=== PATIENT | female | born 1980 | race Caucasian/White ===

== ENCOUNTER 2021-06-08 07:06 | Emergency (ER) | payer BC, SELFPAY ==
[2021-06-08 07:08] VITALS: BP 130/76; PULSE 66; RESP 14; TEMP 36.2; O2SAT 98; BMI 24.5
--- NOTE | 2021-06-08 07:41 | EDS_ITS ---
HPI History of Present Illness Chief Complaint: Rash Informant: patient Onset/Context/Timing Onset: Days (2) Context: Gradual Onset Timing: Continuous Quality: Hives Location: Abdomen, chest, upper back, right hand Worsened by: Nothing Relieved by: Benadryl Narrative Narrative: Patient presents with rash that began 2 days ago. Patient states that came on gradually. Patient states that today she noted some swelling of the tip of her tongue and scratchiness to her throat. Patient states she took 2 [id number] Benadryl tablets approximately 2 hours before she came to the emergency department. Patient states it feels somewhat better. Patient states she was recently started on Bactrim 4 days ago for urinary tract infection. Patient also states she was started on Synthroid 2 days ago for hypothyroidism. Patient states that she still has some urinary urgency and frequency. Patient denies any dysuria. Patient states she has been given a prescription for prednisone but did not take this because she has a history of bipolar disorder and is concerned over possible manic episode due to the prednisone. [facility] Medical History Anxiety Bipolar disorder Depression GERD (gastroesophageal reflux disease) High cholesterol Hypothyroidism Irregular heart beat OCD (obsessive compulsive disorder) Home Medications citalopram [Celexa] 20 mg PO DAILY 06/08/21 [History Last Taken Unknown] lamotrigine 200 mg PO DAILY 06/08/21 [History Last Taken Unknown] levonorgestrel [Mirena] 20 mcg INTRAUTERINE DAILY 06/08/21 [History Last Taken Unknown] levothyroxine [Synthroid] 25 mcg PO DAILY 06/08/21 [History Last Taken Unknown] lithium carbonate 600 mg PO DAILY 06/08/21 [History Last Taken Unknown] lorazepam [Ativan] 0.5 - 1 mg PO DAILY PRN 06/08/21 [History Last Taken Unknown] lurasidone [Latuda] 20 mg PO DAILY 06/08/21 [History Last Taken Unknown] metformin 500 mg PO DAILY 06/08/21 [History Last Taken Unknown] nitrofurantoin monohyd/m-cryst 100 mg PO Q12 #14 capsule 06/08/21 [Rx Last Taken Unknown] spironolactone 50 mg PO DAILY 06/08/21 [History Last Taken Unknown] Allergy/AdvReac Type Severity Reaction Status Date / Time Penicillins Allergy Hives Verified 06/08/21 07:11 escitalopram [From Lexapro] AdvReac Other Verified 06/08/21 07:17 Social History Smoking Status: Never smoker ROS ROS ED Constitutional Constitutional ED: Denies chills or fever(s) Eyes Eyes: Denies blurry vision or change in vision ENT ENT ED: Reports sore throat; Denies rhinorrhea Cardiovascular Cardiovascular: Denies chest pain or palpitations Respiratory/Chest Respiratory/Chest: Denies cough or dyspnea Gastrointestinal Gastrointestinal: Denies nausea or vomiting Genitourinary Genitourinary ED: Reports urinary frequency; Denies dysuria or hematuria Musculoskeletal Musculoskeletal: Denies back pain or neck pain Integumentary Reports rash; Denies abscess Neurologic Neurologic: Denies headache(s) or weakness Allergic/Immunologic Allergic/Immunologic ED: Reports tongue swelling and urticaria EXAM Physical Exam Const Vital Signs: 06/08/21 07:08 Temperature 97.1 F L Temperature Source Temporal Pulse Rate 66 Respiratory Rate 14 Blood Pressure 130/76 H Blood Pressure Mean 94 Pulse Ox 98 Oxygen Delivery Method Room Air Positive well nourished and well developed General Appearance ED: well developed HEENT Reports moist mucous membranes HEENT Narrative: Oropharynx is clear. Airway is patent. There is no edema noted of the oropharynx. There is some questionable edema of the tip of the tongue. Neck supple and no JVD Resp normal respiratory effort and clear to auscultation bilaterally Cardio regular rate, regular rhythm and no murmurs GI normal to inspection, nondistended, normoactive bowel sounds and non-tender Palpation: soft Extremity normal to inspection General Extremety ED: Negative for edema or tenderness General Extremity: Negative for edema Neuro oriented x3, CN's II-XII intact bilaterally and no sensory deficits noted Sensorium / Orientation: alert Motor Exam: strength 5/5 throughout Psych mental status grossly normal Skin Skin Narrative: There is a patchy urticarial rash noted over the abdomen, upper chest, upper back, and over the dorsal aspect of the right hand. There are no vesicles or pustules noted. There are no petechia noted. There is no discharge or drainage. MDM MDM MDM Narrative Medical decision making narrative: Urinalysis was obtained. There is leukocyte esterase of 500 with 25-50 white blood cells and 1+ bacteria. Urine culture was ordered. Patient is feeling better on reevaluation. Patient was instructed to continue taking Benadryl as needed for any itching or hives. Patient was also instructed that she could take Zyrtec, Claritin, or Isabel instead of Benadryl. Patient was given a dose of Macrobid here. Patient is given a prescription for Macrobid. Patient was instructed to follow-up with her primary care physician in 5 to 7 days. Patient understood and was agreeable with the plan. All questions were answered. Lab Data Labs: Laboratory Results - last 24 hr 06/08/21 08:08 Urine Color Yellow Urine Clarity Sl. Cloudy Urine pH 7.0 Ur Specific [place] 1.005 Urine Protein Negative Urine Glucose (UA) Normal Urine Ketones Negative Urine Occult Blood 50 H Urine Nitrite Negative Urine Bilirubin Negative Urine Urobilinogen Normal Ur Leukocyte Esterase 500 H Urine RBC 0-5 SEEN Urine WBC 25-50 SEEN Ur Squamous Epith Cells 0-5 SEEN Urine Bacteria 1+ Urine Mucus 0 SEEN Discharge Plan Triage Chief Complaint: Rash ED Provider: Vaughn Mora Dx/Rx/DC Orders Clinical Impression: Urticaria, Urinary tract infection Instructions: ED Hives (Adult), ED CYSTITIS Female Adult Prescriptions: New nitrofurantoin monohyd/m-cryst [nitrofurantoin monohyd/m-cryst] 100 MG capsule 100 mg PO Q12 Qty: 14 RF: 0 No Action metformin 500 mg Tablet 500 mg PO DAILY RF: 0 Mirena 20 mcg/24 hours (7 yrs) 52 mg Intrauterine Device 20 mcg INTRAUTERINE DAILY RF: 0 lamotrigine 200 mg Tablet 200 mg PO DAILY RF: 0 levothyroxine [Synthroid] 25 mcg Tablet 25 mcg PO DAILY RF: 0 citalopram [Celexa] 20 mg Tablet 20 mg PO DAILY RF: 0 lithium carbonate 600 mg Capsule 600 mg PO DAILY RF: 0 lorazepam [Ativan] 1 mg Tablet 0.5 - 1 mg PO DAILY PRN (Reason: Anxiety) RF: 0 spironolactone 50 mg Tablet 50 mg PO DAILY RF: 0 Latuda 20 mg Tablet 20 mg PO DAILY RF: 0 Primary Care Provider: Mari Salvador Referrals: Mari Salvador MD [Primary Care Provider] - 5-7 Days Disposition Disposition: Home, Self Care
[2021-06-08 08:18] LABS: Mucous, Urine 0 SEEN /hpf (<or=2+)
[2021-06-08 08:26] LABS: Color, Urine Yellow (Yellow); Glucose, Dipstick Normal (Normal); Ketone-Dipstick Negative (Negative); Leukocyte Esterase-Dipstick 500 /ul (Negative); Nitrite-Dipstick Negative (Negative); Occult Blood-Urine 50 /ul (Negative); Protein-Dipstick Negative (Negative); Specific Gravity, Urine 1.005 (1.002-1.030); Urine Bilirubin Dipstick Negative (Negative); Urine Clarity Sl. Cloudy (Clear); Urine Urobilinogen Normal (Normal)
[2021-06-08 08:33] LABS: Bacteria 1+ /hpf (None Seen); Red Blood Cells-Urine 0-5 SEEN /hpf (0-5); Squamous Epithelial Cells - UA 0-5 SEEN /hpf (5-10); White Blood Cells 25-50 SEEN /hpf (0-5)
[2021-06-08] MEDS: Nitrofurantoin Macrocrystals 100 MG Capsule PO (09:17)
== END 2021-06-08 09:18 | disposition home or self-care (01) ==
PROVIDERS: Emergency Provider Emergency Medicine; PCP Internal Medicine; Visit Provider Emergency Medicine
DX: L50.9 Urticaria, unspecified (principal); F31.9 Bipolar disorder, unspecified; N39.0 Urinary tract infection, site not specified; E03.9 Hypothyroidism, unspecified; E78.00 Pure hypercholesterolemia, unspecified; K21.9 Gastro-esophageal reflux disease without esophagitis; F42.9 Obsessive-compulsive disorder, unspecified; F41.9 Anxiety disorder, unspecified; Z79.84 Long term (current) use of oral hypoglycemic drugs; Z79.890 Hormone replacement therapy; Z79.899 Other long term (current) drug therapy
CPT/HCPCS: 81001; 99283

== ENCOUNTER → 2022-05-20 | Outpatient (CLI) | payer BC, SELFPAY | END | disposition home or self-care (01) | PROVIDERS: PCP Internal Medicine; Visit Provider Nurse Practitioner | DX: R06.83 Snoring (principal); R06.81 Apnea, not elsewhere classified; G47.10 Hypersomnia, unspecified | CPT/HCPCS: 95810 ==

== ENCOUNTER 2023-01-20 14:36 | Outpatient (RCR) | payer BC, SELFPAY | END 2023-01-20 19:00 | disposition home or self-care (01) | LOC: PT 14:36 | PROVIDERS: PCP Internal Medicine | DX: Z00.00 Encounter for general adult medical examination without abnormal findings (principal) ==

== ENCOUNTER 2023-04-06 14:57 | Emergency (ER) | payer BC, SELFPAY ==
[2023-04-06 14:58] VITALS: BP 112/71; PULSE 73; RESP 18; TEMP 35.7; O2SAT 98; BMI 24.7
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
--- NOTE | 2023-04-06 15:48 | ED.RN ---
RN AT THE BEDSIDE TO HAVE PATIENT CHANGE INTO A GOWN FOR IM INJECTIONS. PT STATES SHE DOESN'T WANT TO GET THE MEDICATIONS UNTIL SHE TALKS TO HER NEUROLOGIST. PT IS ACTIVELY TRYING TO GET IN TOUCH WITH NEUROLOGIST.
[2023-04-06] MEDS: Rabies Immune Globulin/PF 300 UNIT/ML, 5 ML VIAL 1220 UNIT IM (16:22)
[2023-04-06] MEDS: Rabies Vaccine,Human Diploid 2.5 UNITS Vial IM (16:24)
[2023-04-06 16:48] VITALS: BP 100/62
== END 2023-04-06 16:49 | disposition home or self-care (01) ==
PROVIDERS: Emergency Provider Student in an Organized Health Care Education/Training Program; PCP Internal Medicine; Visit Provider Student in an Organized Health Care Education/Training Program
DX: Z20.3 Contact with and (suspected) exposure to rabies (principal); E78.00 Pure hypercholesterolemia, unspecified
CPT/HCPCS: 90675; 96372; 99283; 90375

== ENCOUNTER 2023-04-09 10:05 | Outpatient (CLI) | payer BC, SELFPAY ==
[2023-04-09 10:07] VITALS: BP 126/78; PULSE 64; RESP 18; O2SAT 98
[2023-04-09] MEDS: Rabies Vaccine,Human Diploid 2.5 UNITS Vial IM (10:35)
== END 2023-04-09 11:19 | disposition home or self-care (01) ==
LOC: ED 11:20
PROVIDERS: PCP Internal Medicine
DX: Z23 Encounter for immunization (principal)
CPT/HCPCS: 90675; 96372

== ENCOUNTER 2023-04-13 11:06 | Outpatient (CLI) | payer BC, SELFPAY ==
[2023-04-13 11:07] VITALS: BP 108/60; PULSE 63; RESP 16; TEMP 37; O2SAT 100
[2023-04-13 11:08] VITALS: BMI 24.0
[2023-04-13] MEDS: Rabies Vaccine,Human Diploid 2.5 UNITS Vial IM (11:42)
[2023-04-13 11:50] VITALS: BMI 24.0
--- NOTE | 2023-04-13 11:55 | ED.RN ---
Pt instructed to wait for 20 min after vaccine administration, however pt states she is unable to wait and ambulated out of department. VIS given to pt again.
== END 2023-04-13 12:10 | disposition home or self-care (01) ==
LOC: ED 12:11
PROVIDERS: PCP Internal Medicine
DX: Z23 Encounter for immunization (principal)
CPT/HCPCS: 90675; 96372

== ENCOUNTER 2023-04-20 13:25 | Outpatient (CLI) | payer BC, SELFPAY ==
[2023-04-20 13:26] VITALS: BP 138/74; PULSE 89; RESP 16; TEMP 36.2; O2SAT 99; BMI 23.9
[2023-04-20] MEDS: Rabies Vaccine,Human Diploid 2.5 UNITS Vial IM (13:51)
[2023-04-20 13:55] VITALS: BMI 23.9
== END 2023-04-20 14:36 | disposition home or self-care (01) ==
PROVIDERS: PCP Internal Medicine; Visit Provider Emergency Medicine
DX: Z23 Encounter for immunization (principal)
CPT/HCPCS: 90675; 96372